=== PATIENT | female | born 1995 | race Two or more races ===

== ENCOUNTER 2025-03-19 12:26 | Observation (INO) | payer MEDICAID, OTHER ==
[2025-03-19] MEDS ORDERED: PREN-96 PO (13:00)
--- NOTE | 2025-03-19 13:26 | DVH ---
CLINICAL HISTORY: Blurred vision for 1 day. COMPARISON: None TECHNIQUE: biophysical profile was performed. Transabdominal sonographic images of the fetus we re obtained. FINDINGS: The fetus is in cephalic position. heart rate measures 163 BPM. Amniotic fluid index measures 13.4 cm. The placenta is anterior in position without visualized evidence for previa or abru ption. BPP profile is an overall score of 8/8, with 2/2 points for breathing, with at least one episode of breathing over a 30 second duration during a 30 minute observation, 2/2 points for m ovements, with 3 or more discrete body or limb movements, 2/2 points for tone, with one or more episodes of extremity extension with return to flexion, or opening and closing of hand, and 2/ 2 points for amniotic fluid, with at least 1 pocket of amniotic fluid that measures 2 cm in 2 perpend icular planes. IMPRESSION: BPP score of 8/8.
--- NOTE | 2025-03-19 15:59 | DVHDS2 ---
Physician Discharge Progress N Final Diagnosis: 3rd trim , not in labor Secondary Diagnosis: Encounter for surveillance Operations or Procedures: Operations or Procedures NST/BPP/ NOREEN all WNL Glucose check, normal complaints of blurred vision,no abnormalities found PATIENT: JAMES MARCUS ACCT: [id number] UNIT: [id number] : 1995 LOC: [facility] ROOM / BED: [facility] / A AGE / SEX: 29 / F ADM STATUS: ADM IN SERVICE 1232 ORDERING PHYSICIAN: CALVIN JEAN DO PROCEDURE(s): BPP - BIOPHYSICAL PROFILE REASON: blurred vision x 1 day ORDER NUMBER(s): [id number], ACCESSION NUMBER(s): [id number] CLINICAL HISTORY: Blurred vision for 1 day. COMPARISON: None TECHNIQUE: biophysical profile was performed. Transabdominal sonographic images of the fetus were obtained. FINDINGS: The fetus is in cephalic position. heart rate measures 163 BPM. Amniotic fluid index measures 13.4 cm. The placenta is anterior in position without visualized evidence for previa or abruption. BPP profile is an overall score of 8/8, with 2/2 points for breathing, with at least one episode of breathing over a 30 second duration during a 30 minute observation, 2/2 points for movements, with 3 or more discrete body or limb movements, 2/2 points for tone, with one or more episodes of extremity extension with return to flexion, or opening and closing of hand, and 2/2 points for amniotic fluid, with at least 1 pocket of amniotic fluid that measures 2 cm in 2 perpendicular planes. IMPRESSION: BPP score of 8/8. ATED BY: NBA OLGUIN DO DICTATED DATE/TIME: 03/19/25 1323 Condition on Discharge: Stable Disposition: Home Discharge Instructions: Diet: Regular Activity: No Restrictions, As Tolerated Follow Up/Referral: Follow up with Dr. Acosta as scheduled. Rest, hydrate and return to birthplace for any related concerns. Medications: NA Follow Up Care: Discharge Statement: "Patient was advised to return to the ER or call 911 if any headaches, dizziness, shortness of breath, chest pain, abdominal pain, bleeding, fevers, or worsening of medical condition. Patient was counseled about treatment plan, medications, possible side effects, patientverbalized understanding. All questions were answered to the best of my ability. This discharge took greater then 30 minutes in planning, reviewing documentation, counseling the patient, and discussing with other team members." Visit Coding OBGYN Date of Service: Mar 19, 2025 Billing Provider: CALVIN JEAN DO INSTRUCTIONAL CONSULTANT Common Visit Codes: 76374-RQA/OBS SAME DATE (HIGH) INSTRUCTIONAL CONSULTANT Procedure Codes: 94764-13- NON-STRESS TEST CALVIN JEAN DO Mar 19, 2025 15:59
== END 2025-03-19 13:40 | disposition home or self-care (01) ==
LOC: LDRP 12:26
PROVIDERS: ADMIT Obstetrics & Gynecology; ATTEND Obstetrics & Gynecology
DX: O26.893 Other specified pregnancy related conditions, third trimester (principal); H53.8 Other visual disturbances; Z3A.37 37 weeks gestation of pregnancy; Z98.890 Other specified postprocedural states
CPT/HCPCS: 59025; 76819; 81002; 82948; 82962; G0378

== ENCOUNTER 2025-04-05 10:23 | Inpatient (IN) | payer MEDICAID ==
[~2025-04-05] VITALS: Ht 160 cm; Wt 67.6 kg
[~2025-04-05 10:23] MED LIST: PREN-96 PO
[2025-04-05] MEDS ORDERED: LACTATED RINGER'S 1,000 ML IV SCH (10:30)
[2025-04-05] MEDS ORDERED: WITCH HAZEL-GLYCERIN PAD TOP PRN (10:30)
[2025-04-05] MEDS ORDERED: PHISODERM TOP SOLN 240ML BTL TOP PRN (10:30)
[2025-04-05] MEDS ORDERED: LIDOCAINE 2%HCL (LOCAL ANESTH.) INJ 20ML MDV IJ PRN (10:30)
[2025-04-05] MEDS ORDERED: BUTORPHANOL TARTRATE 2 MG/1 ML VIAL IV PRN ×2 (10:30)
[2025-04-05] MEDS ORDERED: DERMOPLAST 60ML BOTTLE TOP PRN (10:30)
[2025-04-05] MEDS: LACT. RINGERS/OXYTOCIN 20UNITS 1,000 ML IV ONE (10:37)
[2025-04-05 11:13] LABS: Hemoglobin 14.0 g/dL (12.2-16.2)
[2025-04-05 11:15] LABS: Hematocrit 40.1 % (36.0-46.0); Mean Corpuscular Hemoglobin 33.9 pg (28.0-32.0); Mean Corpuscular Volume 97.4 fL (80.0-100.0); Nucleated Red Blood Cells % 0.1 %
[2025-04-05 11:28] LABS: INR 0.92 (0.9-1.15); Partial Thromboplastin Time 28.8 SEC (24.5-34.5); Prothrombin Time 9.8 sec (9.3-11.8)
[2025-04-05 11:30] VITALS: PULSE 79; RESP 18; O2SAT 96
[2025-04-05 11:34] LABS: Alanine Aminotransferase 20 U/L (7-40); Albumin 4.0 g/dL (3.2-4.8); Alkaline Phosphatase 172 U/L (46-116); Anion Gap 14 (5-15); BUN/Creatinine Ratio 13.3 (10.0-20.0); Bilirubin, Total 0.6 mg/dL (0.2-1.0); Blood Urea Nitrogen 8 mg/dL (9-23); Calcium 8.9 mg/dL (8.7-10.4); Carbon Dioxide 22 mmol/L (20-31); Chloride 105 mmol/L (98-107); Glucose 97 mg/dL (74-106); Potassium 3.3 mmol/L (3.5-5.1); Sodium 141 mmol/L (136-145); Total Protein 6.7 g/dL (5.7-8.2)
--- NOTE | 2025-04-05 11:42 | DVHHP2 ---
OB CC & HPI Date Date of Admission: Apr 05, 2025 Patient Identification: : 3 Para: 2 EDC: Apr 03, 2025 EGA: 40.2 Chief Complaints: Reason for admission: active labor History of Present Complaints 29yo IUP@40.2wks presents in active labor. Pt reports UCs Q3 min that started this morning. Denies LOF/VB/OSBORNE/vision changes/RUQ pain. Endorses +FM. PNC: Routine PNC at [facility] OB, adequate visits, PNC uncomplicated GTT wnl, dating based on sono @7w2d, GBS negative. OB hx: x2, uncomplicated Past Medical History Cardiac: No pertinent Hx Pulmonary: No pertinent Hx Central Nervous System: No pertinent Hx GI: No pertinent Hx Hemotology/Oncology: No pertinent Hx Hepatobiliary: No pertinent Hx Psychiatric: No pertinent Hx Musculoskeletal: No pertinent Hx Rheumotologic: No pertinent Hx Infectious Disease: No peritnent Hx ENT: No pertinent Hx Renal/: No pertinent Hx Endocrine: No pertinent Hx Dermatology: No pertinent Hx Past Surgical History: No pertinent Hx OB History OB History Care: Good Care Ultrasounds: Normal mid trimester US Obstetrical Complications: None Medical Complications: None Allergies: Coded Allergies: NO KNOWN ALLERGIES (Unverified , 04/05/25) Home Meds Reported Medications Vit W/ Ferrous Fumara ( One Daily) Daily Tab, 1 TAB PO DAILY, #90 TAB 3 Refills 03/19/25 Current Medications Current Medications Medications (Trade) Dose Ordered Sig/Mg Route PRN Reason Start Time Stop Time Status Last Admin Lactated Ringer's 1,000 ml @ 125 mls/hr Q8H IV 04/05/25 10:30 Witch Sherlyn (Tucks) 1 pad PRN PRN TOP PERINEAL AREA DISCOMFORT 04/05/25 10:30 Sodium Lauryl Sulfate (Phisoderm) 240 ml PRN PRN TOP PERINEAL AREA DISCOMFORT 04/05/25 10:30 Benzocaine (Dermoplast) 1 applic PRN PRN TOP PERINEAL AREA DISCOMFORT 04/05/25 10:30 Butorphanol Tartrate (Stadol Injection) 1 mg Q4HPRN PRN IV MODERATE PAIN (4-6 PAIN SCALE) 04/05/25 10:30 Butorphanol Tartrate (Stadol Injection) 2 mg Q4HPRN PRN IV SEVERE PAIN (7-10 PAIN SCALE) 04/05/25 10:30 Lidocaine HCl (Xylocaine) 20 ml ONCE PRN IJ PERINEAL AREA DISCOMFORT 04/05/25 10:30 Family & Social History Family/Social History Past Family/Social History: Denies Blood Type: O+ Rubella: immune RPR/VDRL: Negative GBS Status: Negative HBsAG: Negative Review of Systems Constitutional: No symptom reported Ears, Nose, & Throat: No symptom reported Eyes: No symptom reported Pulmonary/Respiratory: No symptom reported Cardiovascular: No symptom reported Gastrointestinal: No symptom reported Genitourinary: No symptom reported Musculoskeletal: No symptom reported Skin: No symptom reported Psychiatric: No symptom reported Endocrine: No symptom reported Hemotologic/Lymphatic: No symptom reported OB Admission Exam Physical Exam Vitals: VSS SVE by RN: 8cm with BBOW HEENT: TMs Normal, Fontanelles Normal, Nasal Mucosa Normal, Eyes non-injected, Oropharynx Normal, PERRLA, Moist Membranes, EOMI Heart: Rhythm Normal Lungs: Clear Abdomen: Gravid Extremities: Normal Reflexes: Normal Pelvic Exam: Complete, BBOW Membranes: Intact Heart Rate: 130's Accelerations: Accelerations Present Decelerations: No Decelerations Retirement Variability: Average (6-25) Contractions on Admission: < 5 Minutes Apart Frequency of Contractions: Q2min Duration: 80 Intensity: Firm OB Plan Plan Admitting Diagnosis: Active Labor Plan: Expectant Management Other Plan: A: 29yo IUP@40.2wks Active labor Category I EFM Intact Membranes GBS negative P: Admit to L&D Informed consent obtained Expectant management monitoring per order Routine labs ordered Pain mgmt PRN Frequent position changes in and out of bed encouraged Limit SVE unless necessary Intrauterine resuscitation PRN Anticipate CNKye will consult with Dr. Acosta PRN Visit Coding OBGYN Date of Service: Apr 05, 2025 Billing Provider: ANUSHKA ALEXANDER CNM BULK DRIVER Common Visit Codes: [id number] INP/OBS CARE (MOD) BULK DRIVER Procedure Codes: 02163-82- NON-STRESS TEST ANUSHKA ALEXANDER CNM Apr 05, 2025 11:42
--- NOTE | 2025-04-05 11:42 | LDN2 ---
Labor and Delivery Note Date 04/05/25 Age 29 3 Para 3 Now AB 0 EDC 04/03/25 EGA 40.2 Diagnosis Active labor, then Vaginal Delivery: VTX Vacuum Assisted: No Placenta: Spontaneous Sex: Female Weight 3135g, 6lb 15oz Apgars 7/8 Nuchal Cord Transected: No Amniotic Fluid: Meconium Stained, Thick Anesthesia None Episiotomy: No Extension: No Repaired with N/A EBL 350cc Labs Maternal blood type O+ Complications None Conditions Stable Sharemilker Somu Comments/Significant Med Marisela At 1102 this 29yo now delivered a viable Female infant by w/ APGARS 7/8. JUAN. SROM at with thick meconium amniotic fluid and RT called to bedside. placed skin to skin on pts chest. Cord clamped and cut after 30 seconds of delayed cord clamping. Cord blood sent. Intact 3-vessel cord placenta delivered spontaneously, Slim. Pitocin IV bolus started. Placenta sent to pathology. Cervix/vagina/perineum inspected (intact). Fundus 2 below U, firm, midline, and light lochia. QBL 350ml. VSS. Count correct x2. Patient to care and baby to couplet care, both stable. Delivery done by NISA Platt with Eunice Redd CNM supervision. Visit Coding OBGYN Date of Service: Apr 05, 2025 Billing Provider: ANUSHKA REDD CNM HAND PICKER Common Visit Codes: PROCEDURE ONLY HAND PICKER Procedure Codes: 77029-VCM DEL INCLUDING ANUSHKA REDD CNM Apr 05, 2025 11:42
[2025-04-05] MEDS: LACT. RINGERS/OXYTOCIN 20UNITS 500 ML IV ONE ×2 (12:01→12:02)
[2025-04-05] MEDS: IBUPROFEN 600 MG TAB PO PRN (12:31)
[2025-04-05 15:00] VITALS: BP 101/59; PULSE 69; RESP 18; TEMP 98; O2SAT 96
[2025-04-05 18:30] VITALS: BP 96/54; PULSE 83; RESP 16; TEMP 97.9; O2SAT 96
[2025-04-05 19:45] LABS: Urine Protein, UAD Negative (Negative)
[2025-04-05 19:55] LABS: Amphetamine Screen, Urine Neg (NEGATIVE); Barbiturate Scree,Urine Neg (NEGATIVE); Benzodiazephine Screen, Urine Neg (NEGATIVE); Cannabinoid Screen, Urine Neg (NEGATIVE); Cocaine Screen, Urine Neg (NEGATIVE); Opiate Scree,Urine Neg (NEGATIVE); Phencyclidine Screen, Urine Neg (NEGATIVE)
[2025-04-05] MEDS: POTASSIUM CHL 20 Meq TABLET PO ONE (21:25)
[2025-04-05] MEDS: ACETAMINOPHEN 325 MG TAB PO PRN (21:26)
[2025-04-05] MEDS: DOCUSATE SOD 100 MG CAP PO SCH (22:00)
[2025-04-05 23:05] VITALS: BP 99/58; PULSE 78; RESP 18; TEMP 97.9; O2SAT 97
--- NOTE | 2025-04-06 00:17 | DVHINCON2 ---
Date of Service if different f: Apr 05, 2025 Time of Service: 23:58 Consult Consult Note PSYCHIATRY L&D NEW CONSULT HPI: 29 yo F pt with no PPH seen today as pt scored 8 on depression scale. Psychiatry consulted for safety evaluation and recommendations in context of current presentation Per pt, reports this is her third and just gave to a healthy baby girl via uncomplicated vaginal delivery. Pt did have 'baby blues' s/p first but never took any psychiatric meds. pt reports feeling tired, nervous/anxious s/p delivery/labor which may have caused mild elevation on scoring on PPDS. Pt is not experiencing any current feelings of depression or feelings to harm self, others, or baby. Over the duration of her , pt denied having any feelings of depression or persistent sadness. Pt excited about her and looks forward to bonding with her once discharged from hospital. Pt denies depressed/sad mood, hopelessness, helplessness, loss of interest, decreased energy, poor sleep/appetite, excessive guilt, anhedonia, or am otivation. Also denies panic/anxiety symptoms, irritability/restlessness, silas, or psychosis. denies hx of manic, psychotic, or major depressive episodes Pt currently does not have psychiatrist/therapist out in community. Never sought MH services in past. Currently not on any psychotropic agents. No prior psych med trials. Denies any ETOH, THC or IDU Never , lives with two other children/partner (baby lilia), some support system noted. Unknown trauma hx. Unknown FH. No acute medical issues, NKDA Does not have hx of suicide attempts, SIB, or prior psych hospitalizations. Currently denies SI/HI. Denies history of violence, unprovoked aggression, impulsivity, emotional dysregulation, or assaultive behaviors. Does not have access to firearms. Identifies self/family as PPF. No safety concerns noted during encounter. MSE: General Appearance/Behavior: Alert and awake; appears stated age, overweight, fair grooming and hygiene; calm and cooperative, fair eye contact, no PMA/PMR, appears a bit tired Speech: coherent, rrr Thought Process: linear, logical, and goal-directed Thought Content: Abnormal Thoughts and Perceptions: None Homicidality / Violent Thoughts: None Suicidality: none Hallucinations: None Delusions: denies paranoia, persecutory, or grandiose delusions Obsessions /compulsions : None Judgment and Insight: fair judgment with fair insight Mood & Affect: "good, little tired" with mood-congruent, appropriate Orientation: oriented to person, place, time Attention/Concentration: intact, follows conversation Memory: grossly intact Language: no unusual or inappropriate language Fund of Knowledge: appropriate Assessment: 29 yo F pt with no PPH seen today as pt scored 8 on depression scal Reports feeling tired, nervous/anxious s/p delivery/labor which may have caused mild elevation on scoring on PPDS. Nonetheless pt current denies SI/HI/AVH. Linear and goal directed in thought. Denies s/s of major depression, silas or psychosis Presently, pt does not show any signs of immediate danger to self or others that would warrant a higher level of care. Thus, pt does not meet criteria for 5150 or inpatient psych admission as is not DTS, DTO or GD Plan: Does not warrant inpatient psychiatric hospitalization or 5150 hold at this time No acute safety concerns Pt can be safely discharged back from hospital to current residence Does not warrant psychotropic med initiation at this time Supportive tx provided Education provided re: normal maternity blues vs post depression/psychosis Pt verbalized understanding and is receptive to above tx plan This case was discussed with L&D nurse/provider and all parties in agreement with above tx plan Tian Jenkins MD Plan discussed with: Patient TIAN JENKINS MD Apr 06, 2025 00:17
[2025-04-06 03:00] VITALS: RESP 16
[2025-04-06 07:17] VITALS: BP 100/56; PULSE 75; RESP 18; TEMP 97.9; O2SAT 97
--- NOTE | 2025-04-06 07:28 | DVHDS2 ---
Discharge Summary Discharge Summary Date of Admission: Apr 05, 2025 Date of Discharge: Apr 06, 2025 Discharge Diagnosis: Stable Condition Brief History: PP Note. Subjective 04/05/2025 @ 1102 29 y/o now ppd#1 s/p Problems: Precipitous delivery Meconium stained fluid at delivery transferred to [facility] QBL 350 ML Perineal intact Lochia minimal Tolerating regular diet well. Ambulating and voiding well w/o feeling lightheaded or dizzy. Passing flatus but no BM yet. Contraceptive plan: Unknown Desires and requests to be discharged home today Objective Afebrile, Vital Signs Date Time Temp Pulse Resp B/P (MAP) Pulse Ox O2 Delivery O2 Flow Rate FiO2 04/06/25 03:00 16 04/05/25 23:05 97.9 78 99/58 (72) 97 97.9 04/05/25 18:30 Room Air Chest: heart and lung sounds normal. Breasts: Nipples intact w/o cracks or soreness Abdomen: normal BS, soft, non-tender, no rebound or guarding, Fundus firm @ Umbilicus -1, lochia minimal Bladder Distended Perineum:- no edema, or erythema, Extremities: no edema or tenderness Lochia - minimal Labs Laboratory Tests Test 04/06/25 07:10 04/05/25 19:20 04/05/25 10:43 04/05/25 10:41 Range/Units White Blood Count Pending Red Blood Count Pending Hemoglobin Pending Hematocrit Pending Mean Corpuscular Volume Pending Mean Corpuscular Hemoglobin Pending Mean Corpuscular Hemoglobin Concent Pending Red Cell Distribution Width Pending Platelet Count Pending Mean Platelet Volume Pending Neutrophils (%) (Auto) Pending Lymphocytes (%) (Auto) Pending Monocytes (%) (Auto) Pending Basophils (%) (Auto) Pending Neutrophils # (Auto) Pending Lymphocytes # (Auto) Pending Monocytes # (Auto) Pending Urine Color Colorless Yellow Urine Clarity Clear Clear Urine pH 7.0 5.0-9.0 Urine Specific [place] 1.009 1.001-1.035 Urine Protein Negative Negative Urine Ketones Negative Negative Urine Blood 3+ H Negative /uL Urine Nitrite Negative Negative Urine Bilirubin Negative Negative Urine Urobilinogen Normal Negative mg/dL Urine Leukocyte Esterase 2+ Negative /uL Urine RBC 231 0 - 4 /hpf Urine Microscopic WBC 54 H 0-5 /HPF Urine Squamous Epithelial Cells Few <5 /hpf Urine Bacteria None seen None Seen /hpf Urine Glucose 1+ H Normal mg/dL Urine Opiates Screen Neg NEGATIVE Urine Fentanyl Screen Neg NEGATIVE Urine Barbiturates Screen Neg NEGATIVE Urine Phencyclidine Screen Neg NEGATIVE Urine Amphetamines Screen Neg NEGATIVE Urine Benzodiazepines Screen Neg NEGATIVE Urine Cocaine Screen Neg NEGATIVE Urine Cannabinoids Screen Neg NEGATIVE Eosinophils (%) (Auto) 0.9 0.0-7.0 % Eosinophils # (Auto) 0.1 0-0.8 10 ^3/uL Basophils # (Auto) 0 0-0.2 10 ^3/uL Nucleated Red Blood Cells 0.1 % Prothrombin Time 9.8 9.3-11.8 sec Prothrombin Time INR 0.92 0.9-1.15 Activated Partial Thromboplast Time 28.8 24.5-34.5 SEC Sodium Level 141 136-145 mmol/L Potassium Level 3.3 L 3.5-5.1 mmol/L Chloride Level 105 98-107 mmol/L Carbon Dioxide Level 22 20-31 mmol/L Anion Gap 14 5-15 Blood Urea Nitrogen 8 L 9-23 mg/dL Creatinine 0.60 0.550-1.02 mg/dL Glomerular Filtration Rate Calc 123 >90 mL/min BUN/Creatinine Ratio 13.3 10.0-20.0 Serum Glucose 97 74-106 mg/dL Calcium Level 8.9 8.7-10.4 mg/dL Total Bilirubin 0.6 0.2-1.0 mg/dL Aspartate Amino Transferase (AST) 24 13-40 U/L Alanine Aminotransferase (ALT) 20 7-40 U/L Alkaline Phosphatase 172 H 46-116 U/L Total Protein 6.7 5.7-8.2 g/dL Albumin 4.0 3.2-4.8 g/dL Hepatitis C Antibody Negative Negative Treponema pallidum Antibody Non-reactive Negative Current Medications Medications (Trade) Dose Ordered Sig/Mg Route PRN Reason Start Time Stop Time Status Last Admin Dose Admin Lactated Ringer's 1,000 ml @ 125 mls/hr Q8H IV 04/05/25 10:30 04/05/25 11:46 CLARE Plata (Tucks) 1 pad PRN PRN TOP PERINEAL AREA DISCOMFORT 04/05/25 10:30 Sodium Lauryl Sulfate (Phisoderm) 240 ml PRN PRN TOP PERINEAL AREA DISCOMFORT 04/05/25 10:30 Benzocaine (Dermoplast) 1 applic PRN PRN TOP PERINEAL AREA DISCOMFORT 04/05/25 10:30 Butorphanol Tartrate (Stadol Injection) 1 mg Q4HPRN PRN IV MODERATE PAIN (4-6 PAIN SCALE) 04/05/25 10:30 04/05/25 11:46 DC Butorphanol Tartrate (Stadol Injection) 2 mg Q4HPRN PRN IV SEVERE PAIN (7-10 PAIN SCALE) 04/05/25 10:30 04/05/25 11:46 DC Lidocaine HCl (Xylocaine) 20 ml ONCE PRN IJ PERINEAL AREA DISCOMFORT 04/05/25 10:30 04/05/25 11:46 DC Oxytocin 500 ml @ 999 mls/hr Q31M ONCE IV 04/05/25 10:30 04/05/25 11:00 DC 04/05/25 12:01 Oxytocin 500 ml @ 125 mls/hr Q4H ONCE IV 04/05/25 11:00 04/05/25 14:59 DC 04/05/25 12:02 Oxytocin 1,000 ml @ ud STK-MED ONCE IV 04/05/25 10:37 04/05/25 10:32 DC Ibuprofen (Motrin Tablet) 600 mg Q6HP PRN PO MODERATE PAIN (4-6 PAIN SCALE) 04/05/25 11:45 04/06/25 03:47 Acetaminophen (Tylenol Tablet) 650 mg Q6HPRN PRN PO MILD PAIN (1-3 PAIN SCALE) 04/05/25 11:45 04/05/25 21:26 Prenat Multivit/ Toole/Iron/Folic Ac (Prenavite Tablet) 1 DAILY PO 04/06/25 10:00 Docusate Sodium (Colace Capsule) 200 mg DAILY PO 04/06/25 22:00 Potassium Chloride (Klor-Con Tablet) 40 meq ONCE ONCE PO 04/05/25 21:00 04/05/25 21:08 DC 04/05/25 21:25 Assessment/ Plan Blood Type: O Rh: Positive Breast Pumping Rubella Immune Pain control with oral medications: Motrin Bowel regimen: Increase fluid intake PP BCM Plan: Unsure at this time Discharge Disposition: Home Discharge Instructions Discharge plan: May discharge home later today / tomorrow if condition remains stable Daily assessment findings will determine when to discharge Discharge Information / Summary Diet: Routine regular diet rich in fiber, protein, iron and vitamin C with adequate fluid intake. Activity: Unrestricted. Advance as tolerated. Balance activities with rest periods No heavy lifting, pushing or straining. Pelvic rest x 6weeks Instructions: self care instructions given. Emergency signs and symptoms including but not limited to pre-eclampsia precautions and signs of infection, PPH & of PPD reviewed with patient. Follow up with OB Provider in 1 week Medications Current Medications Medications (Trade) Dose Ordered Sig/Mg Route Start Time Stop Time Status Last Admin Dose Admin Arlyn Plata (Tucks) 1 pad PRN PRN TOP 04/05/25 10:30 Sodium Lauryl Sulfate (Phisoderm) 240 ml PRN PRN TOP 04/05/25 10:30 Benzocaine (Dermoplast) 1 applic PRN PRN TOP 04/05/25 10:30 Ibuprofen (Motrin Tablet) 600 mg Q6HP PRN PO 04/05/25 11:45 04/06/25 03:47 Acetaminophen (Tylenol Tablet) 650 mg Q6HPRN PRN PO 04/05/25 11:45 04/05/25 21:26 Prenat Multivit/ Toole/Iron/Folic Ac (Prenavite Tablet) 1 DAILY PO 04/06/25 10:00 Docusate Sodium (Colace Capsule) 200 mg DAILY PO 04/06/25 22:00 Follow up Follow up with OB Provider in 1 week Medications: Ibuprofen 600mg every 6 hours as needed for pain. Continue Vitamin and iron Follow up with OB Provider in 1 week Discharge Care Plan Problem Pain, Knowledge deficit, Increase in fluid intake Goals Pain controlled Know Disease Process, Know Procedures, Know Self care Instructions Take Rx medications, Notify MD of any issues, Keep list of meds w/ you See pt D/C handouts Visit Coding OBGYN Date of Service: Apr 06, 2025 Billing Provider: MICHELE MART CNM EIGHT SECTION BLOWER Common Visit Codes: [id number] INP/OBS CARE (MOD) MICHELE MART CNMOct 2024 07:28
[2025-04-06 07:47] LABS: Hematocrit 34.2 % (36.0-46.0); Hemoglobin 12.1 g/dL (12.2-16.2); Mean Corpuscular Hemoglobin 34.5 pg (28.0-32.0); Mean Corpuscular Volume 97.4 fL (80.0-100.0); Nucleated Red Blood Cells % 0.0 %
[2025-04-06] MEDS ORDERED: PRENATAL VITAMIN TAB PO SCH (10:00)
== END 2025-04-06 08:46 | disposition home or self-care (01) | DRG 560 ==
LOC: LDRP 10:23 → OBSVTOIN 10:23 → LDRP 10:25
PROVIDERS: ADMIT Obstetrics & Gynecology; ATTEND Obstetrics & Gynecology
PROC: 10E0XZZ Delivery of Products of Conception, External Approach (ICD-10-PCS; principal; 2025-04-05)
DX: O48.0 Post-term pregnancy (principal); Z37.0 Single live birth; R71.0 Precipitous drop in hematocrit; O62.3 Precipitate labor; O77.0 Labor and delivery complicated by meconium in amniotic fluid; Z3A.40 40 weeks gestation of pregnancy
CPT/HCPCS: 36415; 59025; 59409; 80053; 80307; 81001; 85025; 85610; 85730; 86780; 86803; 86850; 86900; 86901; 94760; 96360; 96361; 96365; 96366; G0378; J2590